=== PATIENT | male | born 1965 | race Caucasian/White ===

== ENCOUNTER 2022-04-01 09:57 | Day surgery (SDC) | payer BC ==
[~2022-04-01] VITALS: Ht 182.9 cm; Wt 101.8 kg
[2022-04-01] VITALS (7 sets, daily range): BP systolic 115–160; BP diastolic 76–103; PULSE 67–81; TEMP 97.2–98.2
[2022-04-01] MEDS ORDERED: CEPHALEXIN500 M1 PO (13:44)
--- NOTE | 2022-04-01 16:00 | NUR ---
PATIENT STABLE AT DISCHARGE WITH VITAL SIGNS WITHIN NORMAL LIMITS WITH THE EXCEPTION OF BLOOD PRESSURE WHICH IS ELEVATED AND HAS BEEN CONSISTENTLY HIGH SINCE ARRIVAL THIS MORNING. PATIENT WAS TAKEN OUT BY WHEELCHAIR AND PUT INTO VEHICLE WITH HIS .
== END 2022-04-01 16:00 | disposition home or self-care (01) ==
LOC: SDCO 09:57
DX: S97.122A Crushing injury of left lesser toe(s), initial encounter (principal); S92.535B Nondisplaced fracture of distal phalanx of left lesser toe(s), initial encounter for open fracture; W22.8XXA Striking against or struck by other objects, initial encounter; Y93.9 Activity, unspecified; Y92.9 Unspecified place or not applicable
CPT/HCPCS: J0690; J1580; J2704; J2795; J3010